=== PATIENT | male | born 1990 | race Caucasian/White ===

== ENCOUNTER 2018-10-25 17:23 | Emergency (ER) | payer MEDICAID, OTHER ==
[~2018-10-25] VITALS: Ht 165.1 cm; Wt 86.5 kg
[2018-10-25 17:28] VITALS: Ht 165.1 cm; Wt 86.5 kg
[2018-10-25] MEDS ORDERED: KETOROLAC 60 MG INJ IM STA (20:18)
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
[2018-10-25] MEDS ORDERED: IBUP-1542 PO (21:55)
[2018-10-25 22:04] VITALS: BP 127/59; PULSE 77; RESP 18
== END 2018-10-25 22:05 | disposition home or self-care (01) ==
LOC: FTE 17:23
DX: S49.92XA Unspecified injury of left shoulder and upper arm, initial encounter (principal); V49.40XA Driver injured in collision with unspecified motor vehicles in traffic accident, initial encounter
CPT/HCPCS: 73060; J1885; 96372